=== PATIENT | male | born 1955 | race Caucasian/White ===

== ENCOUNTER → 2018-10-17 | Outpatient (CLI) | payer BC ==
[~2018-10-17] MED LIST: ASPI325T8 PO; ATOR20TA58 PO; CLOP75TA PO; GADOBUTROL 10 MMOL/10 ML VIAL IV ONE; INSU100I13 SQ; METF500T16 PO; METO25TA2 PO; QUIN40TA16 PO; TAMS0.4C97 PO
--- NOTE | 2018-10-17 15:22 | KCIC ---
MRI of the Brain without and with Contrast 10/17/2018 Clinical History: Dizziness and unsteady gait. Weakness. Technique: Unenhanced T1-weighted sagittal and axial and FLAIR, T2-weighted, gradient echo and diffusion-weighted axial images of the brain were obtained. After the intravenous administration of 10 cc of Gadavist, enhanced T1-weighted axial and coronal images of the brain were obtained. Findings: Comparison is made to the patient's CT scan of the head dated 10/13/2018. There is mild generalized parenchymal atrophy. Patchy, confluent and multiple focal areas of abnormally increased signal intensity are seen within the periventricular and subcortical white matter of both cerebral hemispheres on the FLAIR and T2-weighted images consistent with areas of small vessel ischemic disease. A somewhat oval-shaped area of restricted diffusion is seen involving the right superior akash. This measures 1.1 cm in greatest diameter. It is consistent with an area of acute lacunar ischemia/infarction. A rounded 3 mm area of restricted diffusion is seen involving the subcortical white matter of the left frontal lobe. This is consistent with an area of acute ischemia/infarction. There is no significant surrounding edema or associated mass effect. Small patchy areas of enhancement are seen involving the superior left frontal lobe which likely represent small areas of subacute infarction. These measure 2 to 4 mm in size. There is no surrounding edema or associated mass effect. No additional acute parenchymal abnormality is seen. No extra-axial fluid collection is noted. Mild to moderate mucosal thickening is seen throughout the paranasal sinuses. There are small bilateral mastoid effusions, left greater than right. Normal flow voids are seen within the major vascular structures surrounding the brain parenchyma. IMPRESSION: 1. Areas of acute ischemia/infarction are seen involving the right aspect of the akash and the left frontal lobe. 2. Small patchy areas of enhancement are seen involving the superior left frontal lobe which likely represent small areas of subacute infarction. There is no surrounding edema or associated mass effect. Electronically signed by: Jus Carr MD (10/17/2018 3:19 PM) [id number]
== END | disposition home or self-care (01) ==
LOC: KCIC MRI 12:13
PROVIDERS: ATTEND Physician Assistant
DX: R42 Dizziness and giddiness (principal); H74.8X3 Other specified disorders of middle ear and mastoid, bilateral; I10 Essential (primary) hypertension; E11.9 Type 2 diabetes mellitus without complications; R90.82 White matter disease, unspecified; Z79.01 Long term (current) use of anticoagulants
CPT/HCPCS: 70553; A9585